=== PATIENT | male | born 1945 | race Caucasian/White ===

== ENCOUNTER 2022-08-29 14:22 | Inpatient (IN) | payer MEDICARE, OTHER ==
[~2022-08-29] VITALS: Ht 193 cm; Wt 120.7 kg
--- NOTE | 2022-08-29 14:35 | NUR ---
bib PA from snf for generalized weakness, unble to transfer self to chair sent by Pmd for further eval. PLACED IN BED, AAOX3, BREATHING EVEN AND UNLABORED SATURATING AT 96% WITH 2LIT O2 VIA NC.
[2022-08-29 15:19] LABS: BASOPHILS # (AUTO) 0.1 K/uL (0.0-0.2); BASOPHILS % (AUTO) 0.8 % (0.0-2.0); EOSINOPHILS % (AUTO) 4.1 % (0.0-6.0); HEMATOCRIT 40 % (39-51); HEMOGLOBIN 13.1 g/dL (13.5-17.5); LYMPHOCYTES # (AUTO) 5.8 K/uL (0.8-4.8); LYMPHOCYTES % (AUTO) 57.1 % (20.0-44.0); MEAN CORPUSCULAR HGB CONC 32 g/dl (31.0-36.0); MEAN CORPUSCULAR VOLUME 93 fL (80-96); MONOCYTES % (AUTO) 10.1 % (2.0-12.0); NEUTROPHILS # (AUTO) 2.9 K/uL (1.8-8.9); NEUTROPHILS % (AUTO) 27.9 % (43.0-81.0); PLATELET COUNT (AUTO) 488 K/uL (150-450); RED BLOOD CELL COUNT(AUTO) 4.34 MIL/uL (4.5-6.0); WHITE BLOOD COUNT (AUTO) 10.2 K/uL (4.3-11.0)
--- NOTE | 2022-08-29 15:22 | NUR ---
SWAB FOR COVID19 AND RAPID INFLUENZA SENT TO LAB
[2022-08-29 15:28] LABS: MAGNESIUM 2.3 mg/dL (1.8-2.4)
[2022-08-29 15:33] LABS: CALCIUM, SERUM 8.8 mg/dL (8.5-10.1); CARBON DIOXIDE 29 mmol/L (21-32); CHLORIDE 104 mmol/L (98-107); CREATININE 0.5 mg/dL (0.6-1.3); GLUCOSE 109 mg/dL (74-106); POTASSIUM 3.8 mmol/L (3.5-5.1); SODIUM SERUM 138 mmol/L (136-145); UREA NITROGEN, BLOOD 26 mg/dL (7-18)
[2022-08-29 15:49] LABS: ALANINE AMINOTRANSFERASE 20 U/L (12-78); ALBUMIN 2.7 g/dL (3.4-5.0); ALKALINE PHOSPHATASE 114 U/L (46-116); ASPARTATE AMINOTRANSFERASE 15 U/L (15-37); BILIRUBIN,DIRECT 0.1 mg/dL (0.0-0.2); BILIRUBIN,TOTAL 0.2 mg/dL (0.2-1.0); LIPASE 89 U/L (73-393); TOTAL PROTEIN, SERUM 6.8 g/dL (6.4-8.2)
--- NOTE | 2022-08-29 16:11 | NUR ---
MOVE SHEET SUBMITTED.
[2022-08-29] MEDS ORDERED: CEFTRIAXONE 1GM BAG (ER ONLY) 1 GM/50 ML PIGGYBACK IV ONE (17:00)
[2022-08-29] MEDS ORDERED: AZITHROMYCIN 500 MG in IV D5W 250 ML IV ONE (17:00)
--- NOTE | 2022-08-29 17:19 | NUR ---
ROOM 101
[2022-08-29 17:22] LABS: THYROID STIMULATING HORMONE 6.232 uIU/mL (0.358-3.74)
[2022-08-29] MEDS ORDERED: CEFTRIAXONE 1GM BAG (ER ONLY) 50 ML IV ONE (17:29)
--- NOTE | 2022-08-29 17:37 | NUR ---
[facility] CALLED YOUTH LEADER PAGED.
--- NOTE | 2022-08-29 20:15 | NUR ---
REPORT GIVEN TO MELI COOK FOR CONTINUATION OF CARE.
[2022-08-29] MEDS ORDERED: hydrALAZINE HCL IV 20 MG VIAL IV PRN (21:30)
[2022-08-29] MEDS ORDERED: MAG HYDROX/AL HYDROX/SIMETH 30 ML UDC PO PRN (21:30)
[2022-08-29] MEDS ORDERED: MAGNESIUM HYDROXIDE 30 ML UDC PO PRN (21:30)
[2022-08-29] MEDS ORDERED: ZOLPIDEM TARTRATE 5 MG TABLET PO PRN (21:30)
[2022-08-29] MEDS ORDERED: ONDANSETRON HCL/PF 4 MG/2 ML VIAL IVP PRN (21:30)
[2022-08-29] MEDS ORDERED: CEFEPIME 1 GM in IV D5W 50 ML IV SCH (21:30)
[2022-08-29] MEDS ORDERED: Z GUARD REMEDY 4 OZ OINT TP PRN (21:30)
[2022-08-29] MEDS ORDERED: DEXTROSE 50%-WATER 50 ML DISP.SYRIN IV PRN (21:30)
--- NOTE | 2022-08-29 21:30 | NUR ---
MS RN ADMITTING NOTE PATIENT WAS TRANSFERRED FROM ER TO [facility] AT 2115H; PATIENT IS A/O X 4, ABLE TO MAKE NEEDS KNOWN; STABLE ON 2LPM O2 VIA NASAL CANNULA, TOLERATING WELL AND NO S/S OF DISTRESS NOTED; PATIENT IS POSITIVE FOR COVID 19, HENCE DROPLET PRECAUTION IN PLACE; PATIENT ORIENTED TO STAFF AND ROOM; SKIN WAS ASSESSED AND NOTED SACRAL WOUND AND REDNESS AND BILATERAL FEET SWELLING AND DISCOLORATION; VITAL SIGNS TAKEN AND RECORDED; ADMINISTERED MEDICATIONS ORDERED; PATIENT'S NEEDS ATTENDED; SAFETY MEASURES IMPLEMENTED, BED IN LOW AND LOCKED POSITION, SIDE RAILS UP X 2, CALL LIGHT WITHIN REACH; WILL CONTINUE TO MONITOR THROUGHOUT SHIFT
[2022-08-29] MEDS ORDERED: CEFEPIME 1 GM in IV D5W 50 ML IV ONE (22:00)
[2022-08-29] MEDS ORDERED: CEFEPIME 1 GM VIAL ONE (22:29)
[2022-08-29] MEDS: ENOXAPARIN SODIUM 40 MG/0.4 ML DISP.SYRIN SQ SCH (22:30)
[2022-08-29] MEDS: BLOOD SUGAR DIAGNOSTIC 1 EACH STRIP IN SCH (23:12)
[2022-08-30] MEDS ORDERED: ARIP5TAB10 PO (02:37)
[2022-08-30] MEDS ORDERED: TAMS-12 PO (02:44)
[2022-08-30] MEDS ORDERED: FAMO20TA8 PO (02:44)
[2022-08-30] MEDS ORDERED: LUBI24CA5 PO (02:44)
[2022-08-30] MEDS ORDERED: FERR325T23 PO (02:44)
[2022-08-30] MEDS ORDERED: CHOL100040 PO (02:44)
[2022-08-30] MEDS ORDERED: ASCO500T10 PO (02:44)
[2022-08-30] MEDS ORDERED: DUTA0.5C PO (02:44)
[2022-08-30] MEDS ORDERED: MULT-754 PO (02:44)
[2022-08-30 06:03] LABS: BASOPHILS % (AUTO) 0.5 % (0.0-2.0); EOSINOPHILS % (AUTO) 3.3 % (0.0-6.0); HEMATOCRIT 41 % (39-51); HEMOGLOBIN 13.3 g/dL (13.5-17.5); LYMPHOCYTES # (AUTO) 3.6 K/uL (0.8-4.8); LYMPHOCYTES % (AUTO) 43.9 % (20.0-44.0); MEAN CORPUSCULAR HGB CONC 33 g/dl (31.0-36.0); MEAN CORPUSCULAR VOLUME 92 fL (80-96); MONOCYTES # (AUTO) 0.8 K/uL (0.1-1.30); MONOCYTES % (AUTO) 10.1 % (2.0-12.0); NEUTROPHILS # (AUTO) 3.4 K/uL (1.8-8.9); NEUTROPHILS % (AUTO) 42.2 % (43.0-81.0); PLATELET COUNT (AUTO) 470 K/uL (150-450); RED BLOOD CELL COUNT(AUTO) 4.43 MIL/uL (4.5-6.0); WHITE BLOOD COUNT (AUTO) 8.1 K/uL (4.3-11.0)
[2022-08-30 06:35] LABS: BILIRUBIN,URINE NEGATIVE (NEGATIVE); COLOR,URINE YELLOW (YELLOW); LEUKOCYTE ESTERASE ,URINE 2+ (NEGATIVE); NITRITE, URINE NEGATIVE (NEGATIVE); PH,URINE 8.5 (5.0-8.0); PROTEIN,URINE 2+ mg/dl (NEGATIVE); UGLUCOSE NEGATIVE (NEGATIVE); UROBILINOGEN,URINE 0.2 EU/dL (0.2)
[2022-08-30 06:39] LABS: T4 (THYROXINE) 9.2 ug/dL (4.7-13.3); THYROID STIMULATING HORMONE 3.966 uIU/mL (0.358-3.74)
[2022-08-30 06:45] LABS: CALCIUM, SERUM 8.9 mg/dL (8.5-10.1); CREATININE 0.6 mg/dL (0.6-1.3); POTASSIUM 3.9 mmol/L (3.5-5.1)
[2022-08-30 06:51] LABS: ALBUMIN 2.8 g/dL (3.4-5.0); BILIRUBIN,DIRECT 0.1 mg/dL (0.0-0.2); BILIRUBIN,TOTAL 0.2 mg/dL (0.2-1.0); MAGNESIUM 2.3 mg/dL (1.8-2.4); PHOSPHORUS 3.6 mg/dL (2.5-4.9)
[2022-08-30 06:55] LABS: BACTERIA,URINE Few /HPF (None Seen); SQUAMOUS EPITHELIAL CELL,UR Moderate /HPF (None Seen); URINE AMORPHOUS PHOSPHATES Moderate /HPF (None Seen)
--- NOTE | 2022-08-30 07:10 | NUR ---
MS RN open NOTE PATIENT IS A/O X 4, ABLE TO MAKE NEEDS KNOWN; STABLE ON 2LPM O2 VIA NASAL CANNULA, TOLERATING WELL AND NO S/S OF DISTRESS NOTED; PATIENT IS POSITIVE FOR COVID 19, HENCE DROPLET PRECAUTION IN PLACE; WITH IV ACCESS ON LEFT HAND G#20 SALINE LOCK, INTACT AND PATENT, FLUSHING WELL; SKIN WAS ASSESSED AND NOTED SACRAL WOUND AND REDNESS AND BILATERAL FEET SWELLING AND DISCOLORATION; SAFETY MEASURES IMPLEMENTED, BED IN LOW AND LOCKED POSITION, SIDE RAILS UP X 2, CALL LIGHT WITHIN REACH; NO COMPLAINTS OF PAIN AND DISCOMFORT AT THIS TIME; WILL CONTINUE TO MONITOR
--- NOTE | 2022-08-30 07:18 | NUR ---
MS RN CLOSING NOTE PATIENT IS A/O X 4, ABLE TO MAKE NEEDS KNOWN; STABLE ON 2LPM O2 VIA NASAL CANNULA, TOLERATING WELL AND NO S/S OF DISTRESS NOTED; PATIENT IS POSITIVE FOR COVID 19, HENCE DROPLET PRECAUTION IN PLACE; PATIENT ORIENTED TO STAFF AND ROOM; WITH IV ACCESS ON LEFT HAND G#20 SALINE LOCK, INTACT AND PATENT, FLUSHING WELL; SKIN WAS ASSESSED AND NOTED SACRAL WOUND AND REDNESS AND BILATERAL FEET SWELLING AND DISCOLORATION; ADMINISTERED MEDICATIONS ORDERED; PATIENT'S NEEDS ATTENDED; SAFETY MEASURES IMPLEMENTED, BED IN LOW AND LOCKED POSITION, SIDE RAILS UP X 2, CALL LIGHT WITHIN REACH; NO COMPLAINTS OF PAIN AND DISCOMFORT AT THIS TIME; WILL ENDORSE TO AM NURSE FOR NEO.
[2022-08-30] MEDS: LEVOTHYROXINE SODIUM 50 MCG TABLET PO SCH (07:20)
[2022-08-30] MEDS: CEFEPIME 2 GM in IV D5W 100 ML IV SCH ×3 (07:21→21:00)
[2022-08-30] MEDS: BLOOD SUGAR DIAGNOSTIC 1 EACH STRIP IN SCH ×4 (07:32→22:09)
[2022-08-30] MEDS ORDERED: IPRATROPIUM NEB FS 0.5 MG/2.5 ML AMPUL.NEB NEB SCH (07:35)
[2022-08-30] MEDS ORDERED: ALBUTEROL FS 2.5 MG/3 ML VIAL.NEB NEB SCH (07:35)
[2022-08-30] MEDS: PANTOPRAZOLE 40 MG VIAL IV SCH (08:05)
[2022-08-30] MEDS: DEXAMETHASONE SOD PHOSPHATE 10 MG/ML VIAL IV SCH (08:05)
[2022-08-30] MEDS ORDERED: SENN-18 PO (09:49)
[2022-08-30] MEDS ORDERED: BISA10SU11 RC (09:49)
[2022-08-30] MEDS ORDERED: FURO-145 PO (09:49)
[2022-08-30] MEDS ORDERED: ACET-2605 PO (09:49)
[2022-08-30] MEDS ORDERED: AMIN30LI2 PO (09:49)
[2022-08-30] MEDS ORDERED: LEVO50TA8 PO (09:49)
[2022-08-30] MEDS ORDERED: POLY17PO4 PO (09:49)
[2022-08-30] MEDS ORDERED: ALEN70TA80 PO (09:49)
--- NOTE | 2022-08-30 09:50 | NUR ---
WOUND CARE CONSULT: REVIEWED CHART, NURSING DOCUMENTATION AND PHOTOS WHICH INDICATE SACRAL DEEP TISSUE INJURY WITH SCARRING AND DISCOLORATION TO LOWER EXTREMITIES, PRESENT ON ADMISSION. RECOMMENDATIONS MADE FOR SKIN PROTECTION AND DISCUSSED WITH NURSING STAFF. MD IN AGREEMENT WITH PLAN OF CARE.
[2022-08-30] MEDS: IPRATROPIUM/ALBUTEROL INHALER IH SCH ×2 (14:22→19:47)
--- NOTE | 2022-08-30 18:32 | NUR ---
MS RN CLOSING NOTE PATIENT IS A/O X 3, ABLE TO MAKE NEEDS KNOWN; STABLE ON 2LPM O2 VIA NASAL CANNULA, TOLERATING WELL AND NO S/S OF DISTRESS NOTED; PATIENT IS POSITIVE FOR COVID 19, DROPLET PRECAUTION IN PLACE; WITH IV ACCESS ON LEFT HAND G#20 SALINE LOCK, INTACT AND PATENT, FLUSHING WELL; HAS SACRAL DTI AND REDNESS AND BILATERAL FEET SWELLING AND DISCOLORATION; ALL MEDICATIONS ADMINISTERED ORDERED; PATIENT'S NEEDS MET; BED IN LOW POSITION AND LOCKED , SIDE RAILS UP X 2, CALL LIGHT WITHIN REACH; NO COMPLAINTS OF PAIN AND DISCOMFORT AT THIS TIME; WILL ENDORSE TO PM NURSE FOR NEO.
--- NOTE | 2022-08-30 19:30 | NUR ---
MS RN OPENING NOTE RECEIVED PT IN BED, AWAKE, A/O X 4, ABLE TO VERBALIZE NEEDS. CURRENTLY ON 2L NC, TOLERATING WELL, SATING @ 97%. NO S/SX OF ACUTE RESPI DISTRESS NOTED AT THIS TIME. NO SOB, BREATHING IS EVEN AND UNLABORED. IV ACCESS ON L HAND, # 20g, SL. PT ON DROPLET PRECS. ALL SAFETY MEASURES IN PLACE: BED LOCKED IN LOW POSITION, BED ALARM ON. SR UP X 2, CALL LIGHT WITHIN REACH. WILL CONTINUE TO MONITOR PT.
[2022-08-30 20:00] VITALS: BP 135/72
[2022-08-30] MEDS: ENOXAPARIN SODIUM 40 MG/0.4 ML DISP.SYRIN SQ SCH (21:05)
[2022-08-30] MEDS: INSULIN REGULAR, HUMAN 100 UNIT/ML 3 ML VIAL SQ PRN (22:11)
[2022-08-31 04:00] VITALS: BP 133/69
[2022-08-31] MEDS: CEFEPIME 2 GM in IV D5W 100 ML IV SCH ×3 (04:16→21:17)
[2022-08-31] MEDS: LEVOTHYROXINE SODIUM 50 MCG TABLET PO SCH (06:02)
--- NOTE | 2022-08-31 06:35 | NUR ---
MS RN CLOSING NOTE PT REMAINED STABLE T/O THE NIGHT. ALL DUE MEDS GIVEN. NEEDS MET. PM CARE DONE. TURNED AND REPOSITIONED. WILL ENDORSE TO AM SHIFT NURSE FOR NEO.
--- NOTE | 2022-08-31 07:00 | NUR ---
RN OPENING NOTE RECEIVED PT IN BED, AWAKE, A/O X 4, ABLE TO VERBALIZE NEEDS. CURRENTLY ON 2L NC, TOLERATING WELL. NO S/SX OF ACUTE RESPI DISTRESS NOTED AT THIS TIME. NO SOB, BREATHING IS EVEN AND UNLABORED. IV ACCESS ON L HAND, # 20g, SL. PT ON DROPLET PRECS. ALL SAFETY MEASURES IN PLACE: BED LOCKED IN LOW POSITION, BED ALARM ON. SR UP X 2, CALL LIGHT WITHIN REACH. WILL CONTINUE TO MONITOR PT.
[2022-08-31] MEDS: IPRATROPIUM/ALBUTEROL INHALER IH SCH ×3 (07:35→19:51)
[2022-08-31] MEDS: BLOOD SUGAR DIAGNOSTIC 1 EACH STRIP IN SCH ×4 (07:51→22:07)
[2022-08-31] MEDS: DEXAMETHASONE SOD PHOSPHATE 10 MG/ML VIAL IV SCH (08:14)
[2022-08-31] MEDS: PANTOPRAZOLE 40 MG VIAL IV SCH (08:14)
[2022-08-31 08:15] LABS: BASOPHILS % (AUTO) 0.2 % (0.0-2.0); EOSINOPHILS % (AUTO) 0.3 % (0.0-6.0); HEMATOCRIT 38 % (39-51); HEMOGLOBIN 12.6 g/dL (13.5-17.5); LYMPHOCYTES # (AUTO) 4.3 K/uL (0.8-4.8); MEAN CORPUSCULAR HGB CONC 33 g/dl (31.0-36.0); MEAN CORPUSCULAR VOLUME 92 fL (80-96); MONOCYTES # (AUTO) 0.9 K/uL (0.1-1.30); MONOCYTES % (AUTO) 10.6 % (2.0-12.0); NEUTROPHILS # (AUTO) 3.2 K/uL (1.8-8.9); NEUTROPHILS % (AUTO) 37.9 % (43.0-81.0); PLATELET COUNT (AUTO) 481 K/uL (150-450); RED BLOOD CELL COUNT(AUTO) 4.13 MIL/uL (4.5-6.0); WHITE BLOOD COUNT (AUTO) 8.4 K/uL (4.3-11.0)
[2022-08-31 08:36] LABS: CALCIUM, SERUM 8.9 mg/dL (8.5-10.1); CREATININE 0.6 mg/dL (0.6-1.3); MAGNESIUM 2.2 mg/dL (1.8-2.4); POTASSIUM 3.6 mmol/L (3.5-5.1)
[2022-08-31 12:01] VITALS: BP 136/66
[2022-08-31] MEDS: INSULIN REGULAR, HUMAN 100 UNIT/ML 3 ML VIAL SQ PRN ×3 (12:42→22:07)
--- NOTE | 2022-08-31 19:07 | NUR ---
RN CLOSING NOTE PT IN BED, AWAKE, A/O X 4, ABLE TO VERBALIZE NEEDS. CURRENTLY ON 2L NC, TOLERATING WELL, SATING @ 98%. NO S/SX OF ACUTE RESPI DISTRESS NOTED AT THIS TIME. NO SOB, BREATHING IS EVEN AND UNLABORED. IV ACCESS ON L HAND, # 20g, SL. PT ON DROPLET PRECS. ALL SAFETY MEASURES IN PLACE: BED LOCKED IN LOW POSITION, BED ALARM ON. SR UP X 2, CALL LIGHT WITHIN REACH. INDORSED TO THE CHARCOAL BURNER BEEHIVE KILN NURSE FOR NEO..
--- NOTE | 2022-08-31 19:33 | NUR ---
MS RN OPENING NOTES: RECEIVED PATIENT AWAKE IN BED, BED IN LOW POSITION CALL LIGHTS WITHIN REACH, NO COMPLAIN OF PAIN AND DISCOMFORT AT THIS TIME, ON O2 INHALATION AT2LPM SATURATING WELL, NO SOB WAS OBSERVED, PATIENT IS A/O X1, CONFUSED, ON BED REST,IV LINE AT LEFT HAND #20SL, PATIENT KEPT CLEAN AND DRY ALL NEEDS MET WILL CONTINUE TO MONITOR.
[2022-08-31 20:00] VITALS: BP 115/57
[2022-08-31] MEDS: ENOXAPARIN SODIUM 40 MG/0.4 ML DISP.SYRIN SQ SCH (21:18)
--- NOTE | 2022-08-31 22:02 | NUR ---
RN NOTES: BLOOD SUGAR-139/ 2UNITS REGULAR INSULIN GIVEN PER SLIDING SCALE.
[2022-09-01] VITALS: BP 105/58
[2022-09-01 04:00] VITALS: BP 144/63
[2022-09-01] MEDS: CEFEPIME 2 GM in IV D5W 100 ML IV SCH ×3 (05:00→21:12)
--- NOTE | 2022-09-01 06:19 | NUR ---
MS RN CLOSING NOTES: PATIENT SLEEP IN BED, COMFORTABLY, AROUSABLE TO VERBAL STIMULI, BED IN LOW POSITION, CALL LIGHTS WITHIN REACH, NO COMPLAIN OF PAIN AND DISCOMFORT AT THIS TIME,ON O2 INHALATION AT 2LPM SATURATING WELL, NO SOB WAS OBSERVED IV LINE AT LEFT HAND #20SL, PATIENT KEPT CLEAN AND DRY ALL NEEDS MET ENDORSE TO INCOMING SHIFT,
[2022-09-01] MEDS: LEVOTHYROXINE SODIUM 50 MCG TABLET PO SCH (06:32)
[2022-09-01 07:06] LABS: BASOPHILS % (AUTO) 0.4 % (0.0-2.0); EOSINOPHILS % (AUTO) 0.1 % (0.0-6.0); HEMATOCRIT 39 % (39-51); HEMOGLOBIN 12.3 g/dL (13.5-17.5); LYMPHOCYTES # (AUTO) 3.8 K/uL (0.8-4.8); LYMPHOCYTES % (AUTO) 45.6 % (20.0-44.0); MEAN CORPUSCULAR HGB CONC 32 g/dl (31.0-36.0); MEAN CORPUSCULAR VOLUME 94 fL (80-96); MONOCYTES # (AUTO) 0.8 K/uL (0.1-1.30); MONOCYTES % (AUTO) 10.1 % (2.0-12.0); NEUTROPHILS # (AUTO) 3.6 K/uL (1.8-8.9); NEUTROPHILS % (AUTO) 43.8 % (43.0-81.0); PLATELET COUNT (AUTO) 471 K/uL (150-450); RED BLOOD CELL COUNT(AUTO) 4.09 MIL/uL (4.5-6.0); WHITE BLOOD COUNT (AUTO) 8.2 K/uL (4.3-11.0)
--- NOTE | 2022-09-01 07:20 | NUR ---
REGIONAL SALES ASSOCIATE OPENING NOTES Received pt awake in bed AOx2. No complaints of pain or discomfort at this time. On isolation for COVID 19. Pt is on 2L NC and tolerating it well. IV access on left hand 20G patent and intact. HOB elevated to pts comfort. Siderails up at all times x2. Myron light within reach. Will continue to monitor.
[2022-09-01 07:21] LABS: CALCIUM, SERUM 8.6 mg/dL (8.5-10.1); CARBON DIOXIDE 26 mmol/L (21-32); CHLORIDE 103 mmol/L (98-107); CREATININE 0.5 mg/dL (0.6-1.3); GLUCOSE 127 mg/dL (74-106); MAGNESIUM 2.2 mg/dL (1.8-2.4); PHOSPHORUS 2.5 mg/dL (2.5-4.9); POTASSIUM 3.2 mmol/L (3.5-5.1); SODIUM SERUM 136 mmol/L (136-145); UREA NITROGEN, BLOOD 28 mg/dL (7-18)
[2022-09-01] MEDS: BLOOD SUGAR DIAGNOSTIC 1 EACH STRIP IN SCH ×4 (07:47→21:52)
[2022-09-01 08:00] VITALS: BP 133/62
[2022-09-01] MEDS: PANTOPRAZOLE 40 MG TABLET.DR PO SCH (08:20)
[2022-09-01] MEDS: DEXAMETHASONE SOD PHOSPHATE 10 MG/ML VIAL IV SCH (08:22)
[2022-09-01] MEDS: POTASSIUM CHLORIDE 20 MEQ TAB.PRT.SR PO SCH ×2 (09:07→10:05)
[2022-09-01] MEDS: ACETAMINOPHEN 325 MG TABLET PO PRN (10:09)
--- NOTE | 2022-09-01 11:23 | NUR ---
ICT BUSINESS DEVELOPMENT MANAGER NOTES New order from Dr. Mcdonnell to removed NC from pt and recheck o2 in and hour to see how he's tolerating RA. CN made aware.
--- NOTE | 2022-09-01 12:30 | NUR ---
RESEARCH AND DEVELOPMENT CHEMIST NOTES Pt O2 saturation is at 96%. CN made aware. Will continue pt on RA.
[2022-09-01] MEDS: IPRATROPIUM/ALBUTEROL INHALER IH SCH ×2 (15:36→23:53)
[2022-09-01 16:00] VITALS: BP 117/59
--- NOTE | 2022-09-01 18:25 | NUR ---
CLERK CARRIER CLOSING NOTES All due meds and tx given as ordered. Pt tolerated everything well. All needs attended to. Pt is on RA and tolerating it well with 02 saturation at 97%. IV access on left wrist patent and intact. Call light within reach. Will endorse to oncoming nurse.
--- NOTE | 2022-09-01 19:30 | NUR ---
MS RN OPENING NOTE RECEIVED PATIENT IN BED; AWAKE, ALERT AND ORIENTED X 1-2. ON ROOM AIR; TOLERATING WELL SATURATING @ 97%. AFEBRILE. NOT IN ANY FORM OF RESPIRATORY OR CARDIAC DISTRESS. NO C/O ANY PAIN OR DISCOMFORT. ABLE TO VERBALIZE NEEDS. WITH IV ACCESS ON LEFT HAND 20g: PATENT, INTACT AND SALINE LOCKED. SAFETY PRECAUTIONS IMPLEMENTED: CALL LIGHT AND TABLE WITHIN REACH, SIDE RAILS UP X 2, BED IN LOWEST LOCKED POSITION. WILL CONTINUE TO MONITOR THROUGHOUT SHIFT.
[2022-09-01 20:00] VITALS: BP 124/65
[2022-09-01] MEDS: ENOXAPARIN SODIUM 40 MG/0.4 ML DISP.SYRIN SQ SCH (21:30)
--- NOTE | 2022-09-01 21:30 | NUR ---
RN NOTE HGB 12.3/HCT 39. NO S/S OF BLEEDING. LOVENOX 40 MG 0.4 ML GIVEN SQ ORDERED. WILL CONTINUE TO MONITOR.
[2022-09-01] MEDS: INSULIN REGULAR, HUMAN 100 UNIT/ML 3 ML VIAL SQ PRN (21:53)
[2022-09-02 04:00] VITALS: BP 155/72
[2022-09-02] MEDS: CEFEPIME 2 GM in IV D5W 100 ML IV SCH ×2 (05:51→12:06)
[2022-09-02 05:54] LABS: BASOPHILS % (AUTO) 0.6 % (0.0-2.0); EOSINOPHILS % (AUTO) 0.4 % (0.0-6.0); HEMATOCRIT 41 % (39-51); HEMOGLOBIN 13.3 g/dL (13.5-17.5); LYMPHOCYTES # (AUTO) 4.1 K/uL (0.8-4.8); LYMPHOCYTES % (AUTO) 48.2 % (20.0-44.0); MEAN CORPUSCULAR HGB CONC 33 g/dl (31.0-36.0); MEAN CORPUSCULAR VOLUME 92 fL (80-96); MONOCYTES # (AUTO) 0.9 K/uL (0.1-1.30); MONOCYTES % (AUTO) 10.2 % (2.0-12.0); NEUTROPHILS # (AUTO) 3.4 K/uL (1.8-8.9); NEUTROPHILS % (AUTO) 40.6 % (43.0-81.0); PLATELET COUNT (AUTO) 492 K/uL (150-450); RED BLOOD CELL COUNT(AUTO) 4.41 MIL/uL (4.5-6.0); WHITE BLOOD COUNT (AUTO) 8.5 K/uL (4.3-11.0)
[2022-09-02] MEDS: ACETAMINOPHEN 325 MG TABLET PO PRN (06:03)
[2022-09-02] MEDS: LEVOTHYROXINE SODIUM 50 MCG TABLET PO SCH (06:03)
[2022-09-02 06:08] LABS: CALCIUM, SERUM 8.9 mg/dL (8.5-10.1); CREATININE 0.6 mg/dL (0.6-1.3); MAGNESIUM 2.3 mg/dL (1.8-2.4); PHOSPHORUS 2.4 mg/dL (2.5-4.9); POTASSIUM 3.7 mmol/L (3.5-5.1)
--- NOTE | 2022-09-02 06:42 | NUR ---
MS RN CLOSING NOTE PATIENT IN BED; AWAKE, A/O X 1-2. STABLE ON ROOM AIR SATURATING @ 98%. IN NO ACUTE DISTRESS. DENIES ANY PAIN OR DISCOMFORT. ALL NEEDS ATTENDED. WITH IV ACCESS ON LEFT HAND 20g: PATENT, INTACT AND SALINE LOCKED. SAFETY PRECAUTIONS IN PLACE: CALL LIGHT AND TABLE WITHIN EASY REACH, SIDE RAILS UP X 2, BED IN LOWEST LOCKED POSITION. ENDORSED TO MORNING SHIFT FOR NEO.
--- NOTE | 2022-09-02 07:10 | NUR ---
FIELD CROP I FARMWORKER OPENING NOTES Received pt awake in bed AOx2. No complaints of pain or discomfort at this time. On isolation for COVID 19. Pt is on RA and tolerating it well. IV access on left hand 20G patent and intact. HOB elevated to pts comfort. Siderails up at all times x2. Myron light within reach. Will continue to monitor.
[2022-09-02] MEDS: IPRATROPIUM/ALBUTEROL INHALER IH SCH ×2 (07:35→13:03)
[2022-09-02] MEDS: BLOOD SUGAR DIAGNOSTIC 1 EACH STRIP IN SCH ×2 (07:54→11:30)
[2022-09-02 08:00] VITALS: BP 114/60
[2022-09-02] MEDS: DEXAMETHASONE SOD PHOSPHATE 10 MG/ML VIAL IV SCH (09:02)
[2022-09-02] MEDS: PANTOPRAZOLE 40 MG TABLET.DR PO SCH (09:02)
[2022-09-02] MEDS ORDERED: NEUTRA PHOS 1 POWD.PACKET PO ONE (10:00)
[2022-09-02] MEDS: INSULIN REGULAR, HUMAN 100 UNIT/ML 3 ML VIAL SQ PRN (12:03)
[2022-09-02] MEDS ORDERED: FERROUS SULFATE (325 MG) 325 MG/TAB TABLET PO SCH (12:30)
[2022-09-02] MEDS ORDERED: ACETAMINOPHEN ES 500 MG TABLET PO PRN (12:30)
[2022-09-02] MEDS ORDERED: FUROSEMIDE 20 MG TABLET PO SCH (12:30)
[2022-09-02] MEDS ORDERED: ASCORBIC ACID 500 MG TABLET PO SCH (12:30)
[2022-09-02] MEDS ORDERED: BISACODYL SUPP (10 MG) 10 MG/SUPP.RECT SUPP.RECT RC PRN (12:30)
--- NOTE | 2022-09-02 13:50 | NUR ---
LABEL DRIER NOTES Pt has a discharge order back to [facility]. Report given to JOYCE Novak. tool room supervisor time is 1400.
--- NOTE | 2022-09-02 15:09 | NUR ---
MONITOR WORKER NOTES Pt picked up by ambulance company [facility]. Gave all paperwork and endorsement to EMT. Removed IV access. Pts. belongings taken with pt. Transferred from bed to [facility] safely.
[2022-09-02] MEDS ORDERED: PROSOURCE / PROSTAT (PYXIS) 30 ML UDC PO SCH (17:00)
[2022-09-02] MEDS ORDERED: Medication Not On Formulary EA (Lubiprostone (Amitiza) 24 MCG) PO SCH (17:00)
[2022-09-02] MEDS ORDERED: SENNOSIDES 8.6 MG TABLET PO SCH (17:00)
[2022-09-02] MEDS ORDERED: POLYETHYLENE GLYCOL 3350 17 GM POWD.PACK PO SCH (17:00)
[2022-09-02] MEDS ORDERED: TAMSULOSIN 0.4 MG CAP.SR.24H PO SCH (22:00)
[2022-09-03] MEDS ORDERED: LEVOTHYROXINE SODIUM 50 MCG TABLET PO SCH (07:30)
[2022-09-03] MEDS ORDERED: MULTIVITAMINS,THERAGRAN 1 UDTAB TABLET PO SCH (09:00)
[2022-09-03] MEDS ORDERED: PROSOURCE / PROSTAT (PYXIS) 30 ML UDC PO SCH (09:00)
[2022-09-03] MEDS ORDERED: FAMOTIDINE (20 MG) 20 MG TABLET PO SCH (09:00)
[2022-09-03] MEDS ORDERED: DUTASTERIDE (0.5 MG) 0.5 MG CAPSULE PO SCH (09:00)
[2022-09-03] MEDS ORDERED: ARIPIPRAZOLE 5 MG TABLET PO SCH (09:00)
[2022-09-03] MEDS ORDERED: CHOLECALCIFEROL 1,000 UNIT TABLET (VIT D3) PO SCH (09:00)
[2022-09-08] MEDS ORDERED: ALENDRONATE 70 MG TABLET PO SCH (12:30)
== END 2022-09-02 15:09 | DRG 177 ==
LOC: ER 14:39 → MEDSG1 17:29 → UNDODISIN 09-02 15:44
PROVIDERS: ADMIT Nurse Practitioner Acute Care; ATTEND Student in an Organized Health Care Education/Training Program
DX: U07.1 COVID-19 (principal); J12.82 Pneumonia due to coronavirus disease 2019; J15.9 Unspecified bacterial pneumonia; J90 Pleural effusion, not elsewhere classified; J98.11 Atelectasis; N39.0 Urinary tract infection, site not specified; E86.0 Dehydration; E03.9 Hypothyroidism, unspecified; I11.9 Hypertensive heart disease without heart failure; N40.0 Benign prostatic hyperplasia without lower urinary tract symptoms; M81.0 Age-related osteoporosis without current pathological fracture; Z87.440 Personal history of urinary (tract) infections; K21.00 Gastro-esophageal reflux disease with esophagitis, without bleeding; Y95 Nosocomial condition; G47.33 Obstructive sleep apnea (adult) (pediatric); R79.89 Other specified abnormal findings of blood chemistry; E66.01 Morbid (severe) obesity due to excess calories; Z68.33 Body mass index [BMI] 33.0-33.9, adult; Z79.83 Long term (current) use of bisphosphonates; Z79.899 Other long term (current) drug therapy; F20.9 Schizophrenia, unspecified
CPT/HCPCS: 36415; 71045-TC; 80048-TC; 80061-TC; 80076-TC; 81001; 82728-TC; 82962-TC; 83540-TC; 83605-TC; 83690-TC; 83735-TC; 83880; 84100-TC; 84436-TC; 84443-TC; 84480; 84484-TC; 85025-TC; 85378-TC; 86140-TC; 87081-TC; 87086-TC; 97110-TC; A4223; C9113; C9803; G0378; J0456; J0692; J0696; J1100; J1650; J1815; J7060

== ENCOUNTER 2023-05-06 18:19 | Inpatient (IN) | payer MEDICARE, OTHER ==
[~2023-05-06] VITALS: Ht 193 cm; Wt 145.6 kg
[~2023-05-06 18:19] MED LIST: ACET-2605 PO; ALEN70TA80 PO; AMIN30LI2 PO; ARIP5TAB10 PO; ASCO500T10 PO; BISA10SU11 RC; CHOL100040 PO; DUTA0.5C PO; FAMO20TA8 PO; FERR325T23 PO; FURO-145 PO; LEVO50TA8 PO; LUBI24CA5 PO; MULT-754 PO; POLY17PO4 PO; SENN-18 PO; TAMS-12 PO
[2023-05-06] MEDS ORDERED: HYDR-4209 PO (19:01)
[2023-05-06] MEDS ORDERED: GABA300C PO (19:01)
[2023-05-06] MEDS ORDERED: IPRA4AER IH (19:01)
[2023-05-06] MEDS ORDERED: LIQUID PROTEIN PO (19:01)
[2023-05-06] MEDS ORDERED: ARIP5TAB10 PO (19:01)
[2023-05-06] MEDS ORDERED: CHOL200059 PO (19:01)
[2023-05-06] MEDS ORDERED: HYDR-4303 PO (19:01)
[2023-05-06] MEDS ORDERED: INSU100V3 SQ (19:01)
[2023-05-06] MEDS ORDERED: HYDR-4075 PO (19:01)
[2023-05-06] MEDS ORDERED: GLUC1KIT SQ (19:01)
[2023-05-06] MEDS ORDERED: PANT40TA2 PO (19:01)
[2023-05-06] MEDS ORDERED: ACET-868 PO (19:01)
[2023-05-06 19:50] LABS: BASOPHILS # (AUTO) 0.1 K/uL (0.0-0.2); BASOPHILS % (AUTO) 1.2 % (0.0-2.0); EOSINOPHILS # (AUTO) 0.6 K/uL (0.0-0.7); EOSINOPHILS % (AUTO) 6.8 % (0.0-6.0); HEMATOCRIT 41 % (39-51); HEMOGLOBIN 13.5 g/dL (13.5-17.5); LYMPHOCYTES # (AUTO) 4.1 K/uL (0.8-4.8); LYMPHOCYTES % (AUTO) 44.3 % (20.0-44.0); MEAN CORPUSCULAR HEMOGLOBIN 31 PG (26.0-33.0); MEAN CORPUSCULAR HGB CONC 33 g/dl (31.0-36.0); MEAN CORPUSCULAR VOLUME 94 fL (80-96); MONOCYTES % (AUTO) 11.3 % (2.0-12.0); NEUTROPHILS # (AUTO) 3.4 K/uL (1.8-8.9); NEUTROPHILS % (AUTO) 36.4 % (43.0-81.0); PLATELET COUNT (AUTO) 457 K/uL (150-450); RED BLOOD CELL COUNT(AUTO) 4.35 MIL/uL (4.5-6.0); RED CELL DISTRIBUTION WIDTH 14.7 % (11.5-15.0); WHITE BLOOD COUNT (AUTO) 9.3 K/uL (4.3-11.0)
[2023-05-06 20:06] LABS: ALANINE AMINOTRANSFERASE 23 U/L (12-78); ALKALINE PHOSPHATASE 149 U/L (46-116); ASPARTATE AMINOTRANSFERASE 14 U/L (15-37); BILIRUBIN,DIRECT 0.1 mg/dL (0.0-0.2); BILIRUBIN,TOTAL 0.3 mg/dL (0.2-1.0); CALCIUM, SERUM 9.3 mg/dL (8.5-10.1); CARBON DIOXIDE 30 mmol/L (21-32); CHLORIDE 100 mmol/L (98-107); CREATININE 0.7 mg/dL (0.6-1.3); GLUCOSE 91 mg/dL (74-106); SODIUM SERUM 134 mmol/L (136-145); TOTAL PROTEIN, SERUM 7.8 g/dL (6.4-8.2); UREA NITROGEN, BLOOD 22 mg/dL (7-18)
[2023-05-06 20:08] LABS: INR 0.96 (0.91-1.10); LACTIC ACID 0.8 mmol/L (0.4-2.0); PARTIAL THROMBOPLASTIN TIME 32.9 SEC (24.3-34.3); PROTHROMBIN TIME 10.2 SECS (9.2-11.1)
[2023-05-06] MEDS ORDERED: MAGNESIUM HYDROXIDE 30 ML UDC PO PRN (21:30)
[2023-05-06] MEDS ORDERED: Z GUARD REMEDY 4 OZ OINT TP PRN (21:30)
[2023-05-06] MEDS ORDERED: FUROSEMIDE 20 MG/2 ML VIAL IV ONE (21:30)
[2023-05-06] MEDS ORDERED: Medication Not On Formulary EA (Ipratropium/Albuterol Sulfate (Combivent Respimat 20-100 IH PRN (21:30)
[2023-05-06] MEDS ORDERED: ONDANSETRON HCL/PF 4 MG/2 ML VIAL IVP PRN (21:30)
[2023-05-06] MEDS ORDERED: SENNOSIDES 8.6 MG TABLET PO PRN (21:30)
[2023-05-06] MEDS ORDERED: HYDROCODONE/APAP 10/325MG TABLET PO PRN (21:30)
[2023-05-06] MEDS ORDERED: ZOLPIDEM TARTRATE 5 MG TABLET PO PRN (21:30)
[2023-05-06] MEDS ORDERED: ACETAMINOPHEN 325 MG TABLET PO PRN ×2 (21:30)
[2023-05-06] MEDS ORDERED: DEXTROSE 50%-WATER 50 ML DISP.SYRIN IV PRN (21:30)
[2023-05-06] MEDS ORDERED: MAG HYDROX/AL HYDROX/SIMETH 30 ML UDC PO PRN (21:30)
[2023-05-06 22:20] VITALS: BP 128/63; TEMP 98.1; O2SAT 100
[2023-05-06] MEDS ORDERED: ALBUTEROL FS 2.5 MG/0.5 ML VIAL.NEB NEB PRN (22:30)
[2023-05-06] MEDS ORDERED: IPRATROPIUM NEB FS 0.5 MG/2.5 ML AMPUL.NEB IH PRN (22:30)
[2023-05-06 22:46] LABS: ALBUMIN 3.3 g/dL (3.4-5.0)
[2023-05-06 22:50] LABS: APPEARANCE,URINE CLOUDY (CLEAR); BILIRUBIN,URINE NEGATIVE (NEGATIVE); BLOOD, URINE TRACE-INTA Ery/uL (NEGATIVE); COLOR,URINE YELLOW (YELLOW); KETONES,URINE NEGATIVE (NEGATIVE); LEUKOCYTE ESTERASE ,URINE 3+ (NEGATIVE); NITRITE, URINE POSITIVE (NEGATIVE); PH,URINE 6.5 (5.0-8.0); PROTEIN,URINE NEGATIVE (NEGATIVE); UGLUCOSE NEGATIVE (NEGATIVE); UROBILINOGEN,URINE 0.2 EU/dL (0.2)
[2023-05-06 23:04] LABS: ADD URINE CULTURE YES; BACTERIA,URINE Moderate /HPF (None Seen); SQUAMOUS EPITHELIAL CELL,UR Rare /HPF (None Seen)
[2023-05-06] MEDS: BLOOD SUGAR DIAGNOSTIC 1 EACH STRIP IN SCH (23:16)
[2023-05-06] MEDS: INSULIN REGULAR, HUMAN 100 UNIT/ML 3 ML VIAL SQ PRN (23:16)
[2023-05-07] VITALS: BP 141/63; TEMP 97.9; O2SAT 97
[2023-05-07 00:13] VITALS: BP 128/63; TEMP 98.1; O2SAT 100
[2023-05-07] MEDS ORDERED: CEFTRIAXONE 1GM BAG (ER ONLY) 50 ML IV ONE (01:31)
[2023-05-07] MEDS: CEFTRIAXONE 1 G in IV D5W 50 ML IV SCH (02:23)
[2023-05-07 04:00] VITALS: BP 113/54; TEMP 97.7; O2SAT 95
[2023-05-07 05:52] LABS: BASOPHILS # (AUTO) 0.1 K/uL (0.0-0.2); BASOPHILS % (AUTO) 0.7 % (0.0-2.0); EOSINOPHILS # (AUTO) 0.5 K/uL (0.0-0.7); EOSINOPHILS % (AUTO) 6.8 % (0.0-6.0); HEMATOCRIT 37 % (39-51); HEMOGLOBIN 12.2 g/dL (13.5-17.5); LYMPHOCYTES # (AUTO) 3.3 K/uL (0.8-4.8); LYMPHOCYTES % (AUTO) 41.6 % (20.0-44.0); MEAN CORPUSCULAR HEMOGLOBIN 31 PG (26.0-33.0); MEAN CORPUSCULAR HGB CONC 33 g/dl (31.0-36.0); MEAN CORPUSCULAR VOLUME 93 fL (80-96); MONOCYTES # (AUTO) 1.2 K/uL (0.1-1.30); NEUTROPHILS # (AUTO) 2.8 K/uL (1.8-8.9); NEUTROPHILS % (AUTO) 35.9 % (43.0-81.0); PLATELET COUNT (AUTO) 447 K/uL (150-450); RED BLOOD CELL COUNT(AUTO) 3.99 MIL/uL (4.5-6.0); RED CELL DISTRIBUTION WIDTH 14.3 % (11.5-15.0); WHITE BLOOD COUNT (AUTO) 7.8 K/uL (4.3-11.0)
[2023-05-07 06:20] LABS: CALCIUM, SERUM 8.7 mg/dL (8.5-10.1); CREATININE 0.7 mg/dL (0.6-1.3); MAGNESIUM 2.2 mg/dL (1.8-2.4); PHOSPHORUS 3.6 mg/dL (2.5-4.9); POTASSIUM 3.7 mmol/L (3.5-5.1)
[2023-05-07 06:27] LABS: THYROID STIMULATING HORMONE 5.349 uIU/mL (0.358-3.74)
[2023-05-07] MEDS: BLOOD SUGAR DIAGNOSTIC 1 EACH STRIP IN SCH ×4 (06:38→22:33)
[2023-05-07] MEDS: INSULIN REGULAR, HUMAN 100 UNIT/ML 3 ML VIAL SQ PRN ×2 (06:39→11:47)
[2023-05-07] MEDS: LEVOTHYROXINE SODIUM 50 MCG TABLET PO SCH (07:59)
[2023-05-07 08:00] VITALS: BP 125/60; TEMP 97.9; O2SAT 97
[2023-05-07] MEDS: PANTOPRAZOLE 40 MG TABLET.DR PO SCH ×2 (08:00→08:30)
[2023-05-07] MEDS: CHOLECALCIFEROL 1,000 UNIT TABLET (VIT D3) PO SCH (08:30)
[2023-05-07] MEDS: ARIPIPRAZOLE 5 MG TABLET PO SCH (08:31)
[2023-05-07] MEDS: GABAPENTIN 300 MG CAPSULE PO SCH ×2 (08:31→17:06)
[2023-05-07] MEDS: DUTASTERIDE (0.5 MG) 0.5 MG CAPSULE PO SCH (08:31)
[2023-05-07] MEDS ORDERED: Medication Not On Formulary EA (Lubiprostone (Amitiza) 24 MCG) PO SCH (09:00)
[2023-05-07] MEDS: FUROSEMIDE 40 MG/4 ML VIAL IV SCH ×2 (11:18→17:06)
[2023-05-07] MEDS: FERROUS SULFATE (325 MG) 325 MG/TAB TABLET PO SCH ×2 (13:12→13:14)
[2023-05-07] MEDS: APIXABAN 5 MG TABLET PO SCH ×2 (13:13→17:12)
[2023-05-07 16:00] VITALS: BP 122/67; TEMP 98.4; O2SAT 98
[2023-05-07 20:00] VITALS: BP 116/91; TEMP 98; O2SAT 98
[2023-05-08] VITALS: BP 125/58; TEMP 98.2; O2SAT 95
[2023-05-08] MEDS: CEFTRIAXONE 1 G in IV D5W 50 ML IV SCH (00:24)
[2023-05-08 04:00] VITALS: BP 136/58; TEMP 98.1; O2SAT 96
[2023-05-08 05:48] LABS: BASOPHILS # (AUTO) 0.1 K/uL (0.0-0.2); EOSINOPHILS # (AUTO) 0.6 K/uL (0.0-0.7); EOSINOPHILS % (AUTO) 7.1 % (0.0-6.0); HEMATOCRIT 40 % (39-51); HEMOGLOBIN 13.1 g/dL (13.5-17.5); LYMPHOCYTES # (AUTO) 3.7 K/uL (0.8-4.8); LYMPHOCYTES % (AUTO) 41.8 % (20.0-44.0); MEAN CORPUSCULAR HEMOGLOBIN 31 PG (26.0-33.0); MEAN CORPUSCULAR HGB CONC 33 g/dl (31.0-36.0); MEAN CORPUSCULAR VOLUME 94 fL (80-96); MONOCYTES # (AUTO) 1.2 K/uL (0.1-1.30); MONOCYTES % (AUTO) 13.2 % (2.0-12.0); NEUTROPHILS # (AUTO) 3.3 K/uL (1.8-8.9); NEUTROPHILS % (AUTO) 36.9 % (43.0-81.0); PLATELET COUNT (AUTO) 495 K/uL (150-450); RED BLOOD CELL COUNT(AUTO) 4.24 MIL/uL (4.5-6.0); RED CELL DISTRIBUTION WIDTH 14.1 % (11.5-15.0); WHITE BLOOD COUNT (AUTO) 8.8 K/uL (4.3-11.0)
[2023-05-08 06:09] LABS: ALBUMIN 3.1 g/dL (3.4-5.0); BILIRUBIN,TOTAL 0.3 mg/dL (0.2-1.0); CREATININE 0.7 mg/dL (0.6-1.3); MAGNESIUM 2.3 mg/dL (1.8-2.4); PHOSPHORUS 4.1 mg/dL (2.5-4.9); POTASSIUM 3.5 mmol/L (3.5-5.1); TOTAL PROTEIN, SERUM 7.6 g/dL (6.4-8.2)
[2023-05-08 07:00] VITALS: BP 122/59; TEMP 98.1; O2SAT 95
[2023-05-08] MEDS: BLOOD SUGAR DIAGNOSTIC 1 EACH STRIP IN SCH ×4 (07:06→22:00)
[2023-05-08] MEDS: LEVOTHYROXINE SODIUM 50 MCG TABLET PO SCH (08:22)
[2023-05-08] MEDS: PANTOPRAZOLE 40 MG TABLET.DR PO SCH (08:22)
[2023-05-08] MEDS: FUROSEMIDE 40 MG/4 ML VIAL IV SCH ×2 (08:23→16:54)
[2023-05-08] MEDS: DUTASTERIDE (0.5 MG) 0.5 MG CAPSULE PO SCH (08:23)
[2023-05-08] MEDS: GABAPENTIN 300 MG CAPSULE PO SCH ×2 (08:23→16:54)
[2023-05-08] MEDS: CHOLECALCIFEROL 1,000 UNIT TABLET (VIT D3) PO SCH (08:23)
[2023-05-08] MEDS: ARIPIPRAZOLE 5 MG TABLET PO SCH (08:23)
[2023-05-08] MEDS: APIXABAN 5 MG TABLET PO SCH ×2 (08:24→16:58)
[2023-05-08 11:30] VITALS: BP 122/70; TEMP 97.9; O2SAT 93
[2023-05-08] MEDS: PROSOURCE / PROSTAT (PYXIS) 30 ML UDC PO SCH ×2 (12:32→16:54)
[2023-05-08 16:00] VITALS: BP 129/63; TEMP 98.3; O2SAT 91
[2023-05-08 20:00] VITALS: BP 123/66; TEMP 98.8; O2SAT 94
[2023-05-09] VITALS: BP 126/68; TEMP 98.8; O2SAT 96
[2023-05-09] MEDS: CEFTRIAXONE 1 G in IV D5W 50 ML IV SCH (00:53)
[2023-05-09 00:59] VITALS: BP 126/68; TEMP 98.8; O2SAT 96
[2023-05-09 04:00] VITALS: BP 127/53; TEMP 98.6; O2SAT 95
[2023-05-09 04:38] VITALS: BP 127/53; TEMP 98.6; O2SAT 95
[2023-05-09 05:54] LABS: BASOPHILS # (AUTO) 0.1 K/uL (0.0-0.2); BASOPHILS % (AUTO) 1.1 % (0.0-2.0); EOSINOPHILS # (AUTO) 0.7 K/uL (0.0-0.7); EOSINOPHILS % (AUTO) 7.8 % (0.0-6.0); HEMATOCRIT 38 % (39-51); HEMOGLOBIN 12.6 g/dL (13.5-17.5); LYMPHOCYTES # (AUTO) 3.7 K/uL (0.8-4.8); LYMPHOCYTES % (AUTO) 39.4 % (20.0-44.0); MEAN CORPUSCULAR HEMOGLOBIN 31 PG (26.0-33.0); MEAN CORPUSCULAR HGB CONC 33 g/dl (31.0-36.0); MEAN CORPUSCULAR VOLUME 94 fL (80-96); MONOCYTES # (AUTO) 1.4 K/uL (0.1-1.30); MONOCYTES % (AUTO) 14.7 % (2.0-12.0); NEUTROPHILS # (AUTO) 3.5 K/uL (1.8-8.9); PLATELET COUNT (AUTO) 508 K/uL (150-450); RED BLOOD CELL COUNT(AUTO) 4.01 MIL/uL (4.5-6.0); RED CELL DISTRIBUTION WIDTH 14.3 % (11.5-15.0); WHITE BLOOD COUNT (AUTO) 9.5 K/uL (4.3-11.0)
[2023-05-09 06:35] LABS: ALANINE AMINOTRANSFERASE 18 U/L (12-78); ALBUMIN 2.9 g/dL (3.4-5.0); ALKALINE PHOSPHATASE 129 U/L (46-116); ASPARTATE AMINOTRANSFERASE 14 U/L (15-37); BILIRUBIN,TOTAL 0.3 mg/dL (0.2-1.0); CALCIUM, SERUM 8.6 mg/dL (8.5-10.1); CARBON DIOXIDE 30 mmol/L (21-32); CHLORIDE 98 mmol/L (98-107); CREATININE 0.7 mg/dL (0.6-1.3); GLUCOSE 99 mg/dL (74-106); MAGNESIUM 2.2 mg/dL (1.8-2.4); PHOSPHORUS 3.9 mg/dL (2.5-4.9); POTASSIUM 3.3 mmol/L (3.5-5.1); SODIUM SERUM 135 mmol/L (136-145); TOTAL PROTEIN, SERUM 7.3 g/dL (6.4-8.2); UREA NITROGEN, BLOOD 34 mg/dL (7-18)
[2023-05-09] MEDS: BLOOD SUGAR DIAGNOSTIC 1 EACH STRIP IN SCH ×2 (07:02→12:25)
[2023-05-09 08:46] VITALS: BP 116/60; TEMP 98.2; O2SAT 98
[2023-05-09] MEDS: FUROSEMIDE 40 MG/4 ML VIAL IV SCH (08:50)
[2023-05-09] MEDS: ARIPIPRAZOLE 5 MG TABLET PO SCH (08:50)
[2023-05-09] MEDS: DUTASTERIDE (0.5 MG) 0.5 MG CAPSULE PO SCH (08:50)
[2023-05-09] MEDS: PANTOPRAZOLE 40 MG TABLET.DR PO SCH (08:50)
[2023-05-09] MEDS: LEVOTHYROXINE SODIUM 50 MCG TABLET PO SCH (08:50)
[2023-05-09] MEDS: APIXABAN 5 MG TABLET PO SCH (08:51)
[2023-05-09] MEDS: CHOLECALCIFEROL 1,000 UNIT TABLET (VIT D3) PO SCH (08:52)
[2023-05-09] MEDS: GABAPENTIN 300 MG CAPSULE PO SCH (08:52)
[2023-05-09] MEDS: PROSOURCE / PROSTAT (PYXIS) 30 ML UDC PO SCH ×2 (08:52→12:28)
[2023-05-09] MEDS ORDERED: POTASSIUM CHLORIDE 20 MEQ TAB.PRT.SR PO SCH (10:30)
[2023-05-09] MEDS: INSULIN REGULAR, HUMAN 100 UNIT/ML 3 ML VIAL SQ PRN (12:25)
[2023-05-09] MEDS: FERROUS SULFATE (325 MG) 325 MG/TAB TABLET PO SCH (12:28)
[2023-05-09 15:46] VITALS: BP 118/48; TEMP 97.8; O2SAT 99
== END 2023-05-09 16:25 | DRG 291 ==
LOC: ER 18:22 → TELE 21:38
PROVIDERS: ADMIT Nurse Practitioner Acute Care
DX: I11.0 Hypertensive heart disease with heart failure (principal); I50.33 Acute on chronic diastolic (congestive) heart failure; E87.1 Hypo-osmolality and hyponatremia; I82.412 Acute embolism and thrombosis of left femoral vein; L97.419 Non-pressure chronic ulcer of right heel and midfoot with unspecified severity; Z68.42 Body mass index [BMI] 45.0-49.9, adult; E11.42 Type 2 diabetes mellitus with diabetic polyneuropathy; I89.0 Lymphedema, not elsewhere classified; J44.9 Chronic obstructive pulmonary disease, unspecified; Z20.822 Contact with and (suspected) exposure to COVID-19; R56.9 Unspecified convulsions; N40.0 Benign prostatic hyperplasia without lower urinary tract symptoms; K21.9 Gastro-esophageal reflux disease without esophagitis; M81.0 Age-related osteoporosis without current pathological fracture; M19.90 Unspecified osteoarthritis, unspecified site; F20.9 Schizophrenia, unspecified; F32.A Depression, unspecified; E03.9 Hypothyroidism, unspecified; D64.9 Anemia, unspecified; Z79.4 Long term (current) use of insulin; Z79.51 Long term (current) use of inhaled steroids; Z79.890 Hormone replacement therapy; L89.616 Pressure-induced deep tissue damage of right heel; E11.621 Type 2 diabetes mellitus with foot ulcer; E66.01 Morbid (severe) obesity due to excess calories; G47.33 Obstructive sleep apnea (adult) (pediatric); R53.1 Weakness; E11.51 Type 2 diabetes mellitus with diabetic peripheral angiopathy without gangrene
CPT/HCPCS: 36415; 71045-TC; 80048-TC; 80053-TC; 80076-TC; 81001; 82962-TC; 83605-TC; 83735-TC; 83880; 84100-TC; 84443-TC; 84484-TC; 85025-TC; 85730-TC; 87040-TC; 87081-TC; 87086-TC; 93307-TC; 93970-TC; 97110-TC; 97530-TC; A4223; C9803; G0378; J0696; J1815; J1940; J7040; J7060

== ENCOUNTER 2024-02-04 16:35 | Inpatient (IN) | payer MEDICARE, OTHER ==
[~2024-02-04] VITALS: Ht 182.9 cm; Wt 131.1 kg
[~2024-02-04 16:35] MED LIST changes: -ACET-2605 PO; +ACET-868 PO; -ALEN70TA80 PO; -AMIN30LI2 PO; -ASCO500T10 PO; -CHOL100040 PO; +CHOL200059 PO; -FAMO20TA8 PO; +GABA300C PO; +GLUC1KIT SQ; +HYDR-4075 PO; +HYDR-4209 PO; +HYDR-4303 PO; +INSU100V3 SQ; +IPRA4AER IH; +LIQUID PROTEIN PO; -MULT-754 PO; +PANT40TA2 PO; -POLY17PO4 PO; -TAMS-12 PO
[2024-02-04 17:40] LABS: BASOPHILS # (AUTO) 0.1 K/uL (0.0-0.2); BASOPHILS % (AUTO) 1.1 % (0.0-2.0); EOSINOPHILS # (AUTO) 0.4 K/uL (0.0-0.7); EOSINOPHILS % (AUTO) 4.4 % (0.0-6.0); HEMATOCRIT 43 % (39-51); HEMOGLOBIN 14.3 g/dL (13.5-17.5); LYMPHOCYTES # (AUTO) 3.8 K/uL (0.8-4.8); MEAN CORPUSCULAR HEMOGLOBIN 31 PG (26.0-33.0); MEAN CORPUSCULAR HGB CONC 33 g/dl (31.0-36.0); MEAN CORPUSCULAR VOLUME 94 fL (80-96); MONOCYTES # (AUTO) 1.1 K/uL (0.1-1.30); MONOCYTES % (AUTO) 10.9 % (2.0-12.0); NEUTROPHILS # (AUTO) 4.4 K/uL (1.8-8.9); NEUTROPHILS % (AUTO) 44.6 % (43.0-81.0); PLATELET COUNT (AUTO) 609 K/uL (150-450); RED BLOOD CELL COUNT(AUTO) 4.61 MIL/uL (4.5-6.0); WHITE BLOOD COUNT (AUTO) 9.8 K/uL (4.3-11.0)
[2024-02-04 17:49] LABS: CARBON DIOXIDE 32 mmol/L (21-32); CHLORIDE 101 mmol/L (98-107); CREATININE 0.7 mg/dL (0.6-1.3); GLUCOSE 98 mg/dL (74-106); POTASSIUM 4.1 mmol/L (3.5-5.1); SODIUM SERUM 135 mmol/L (136-145); UREA NITROGEN, BLOOD 23 mg/dL (7-18)
[2024-02-04 17:56] LABS: PROTHROMBIN TIME 9.8 SECS (9.2-11.1)
[2024-02-04 17:57] LABS: INR 0.95 (0.91-1.10)
[2024-02-04 18:01] LABS: NT-PRO BNP 238 pg/mL (0-125)
[2024-02-04 18:23] LABS: EOSINOPHILS % (MANUAL) 7 % (0-4); LYMPHOCYTES % (MANUAL) 37 % (16-48); MONOCYTES % (MANUAL) 13 % (0-11.0); NEUTROPHILS % (MANUAL) 43 (42-76); PLATELET ESTIMATE INCREASED
[2024-02-04 18:26] LABS: TARGET CELLS 1+
[2024-02-04] MEDS ORDERED: BLOO-668 IN (18:35)
[2024-02-04] MEDS ORDERED: ACETAMINOPHEN 325 MG TABLET PO PRN (20:00)
[2024-02-04] MEDS ORDERED: ONDANSETRON HCL/PF 4 MG/2 ML VIAL IVP PRN (20:00)
[2024-02-04] MEDS ORDERED: MAGNESIUM HYDROXIDE 30 ML UDC PO PRN (20:00)
[2024-02-04] MEDS ORDERED: MAG HYDROX/AL HYDROX/SIMETH 30 ML UDC PO PRN (20:00)
[2024-02-04] MEDS ORDERED: Z GUARD REMEDY 4 OZ OINT TP PRN (20:00)
[2024-02-04 21:00] VITALS: BP_SYST 120; BP_DIAS 61; BP_DIAS 66; TEMP 98.4; O2SAT 96
[2024-02-04] MEDS ORDERED: ZOLPIDEM TARTRATE 5 MG TABLET PO PRN (22:00)
[2024-02-04] MEDS: ENOXAPARIN SODIUM 40 MG/0.4 ML DISP.SYRIN SQ SCH (22:19)
[2024-02-05] MEDS ORDERED: DEXTROSE 50%-WATER 50 ML DISP.SYRIN IV PRN
[2024-02-05] MEDS: BLOOD SUGAR DIAGNOSTIC 1 EACH STRIP IN SCH (06:37)
[2024-02-05 06:39] LABS: BASOPHILS # (AUTO) 0.1 K/uL (0.0-0.2); BASOPHILS % (AUTO) 0.9 % (0.0-2.0); EOSINOPHILS # (AUTO) 0.3 K/uL (0.0-0.7); EOSINOPHILS % (AUTO) 3.9 % (0.0-6.0); HEMATOCRIT 40 % (39-51); HEMOGLOBIN 13.5 g/dL (13.5-17.5); LYMPHOCYTES # (AUTO) 3.5 K/uL (0.8-4.8); LYMPHOCYTES % (AUTO) 40.3 % (20.0-44.0); MEAN CORPUSCULAR HEMOGLOBIN 31 PG (26.0-33.0); MEAN CORPUSCULAR HGB CONC 34 g/dl (31.0-36.0); MEAN CORPUSCULAR VOLUME 93 fL (80-96); MONOCYTES # (AUTO) 0.9 K/uL (0.1-1.30); MONOCYTES % (AUTO) 10.1 % (2.0-12.0); NEUTROPHILS # (AUTO) 3.9 K/uL (1.8-8.9); NEUTROPHILS % (AUTO) 44.8 % (43.0-81.0); PLATELET COUNT (AUTO) 532 K/uL (150-450); RED BLOOD CELL COUNT(AUTO) 4.35 MIL/uL (4.5-6.0); RED CELL DISTRIBUTION WIDTH 14.3 % (11.5-15.0); WHITE BLOOD COUNT (AUTO) 8.8 K/uL (4.3-11.0)
[2024-02-05] MEDS: INSULIN REGULAR, HUMAN 100 UNIT/ML 3 ML VIAL SQ PRN (06:39)
[2024-02-05] MEDS: PANTOPRAZOLE 40 MG TABLET.DR PO SCH (06:52)
[2024-02-05 07:00] LABS: ALANINE AMINOTRANSFERASE 14 U/L (12-78); ALBUMIN 2.6 g/dL (3.4-5.0); ALKALINE PHOSPHATASE 140 U/L (46-116); ASPARTATE AMINOTRANSFERASE 17 U/L (15-37); BILIRUBIN,DIRECT 0.1 mg/dL (0.0-0.2); BILIRUBIN,TOTAL 0.3 mg/dL (0.2-1.0); CALCIUM, SERUM 9.4 mg/dL (8.5-10.1); CARBON DIOXIDE 28 mmol/L (21-32); CHLORIDE 102 mmol/L (98-107); CREATININE 0.5 mg/dL (0.6-1.3); GLUCOSE 95 mg/dL (74-106); MAGNESIUM 2.4 mg/dL (1.8-2.4); PHOSPHORUS 2.9 mg/dL (2.5-4.9); POTASSIUM 3.9 mmol/L (3.5-5.1); SODIUM SERUM 135 mmol/L (136-145); TOTAL PROTEIN, SERUM 7.2 g/dL (6.4-8.2); UREA NITROGEN, BLOOD 23 mg/dL (7-18)
[2024-02-05 08:00] VITALS: BP 127/68; TEMP 98.4; O2SAT 97
[2024-02-05] MEDS ORDERED: SENNOSIDES 8.6 MG TABLET PO PRN (10:00)
[2024-02-05] MEDS ORDERED: hydrALAZINE HCL 10 MG TABLET PO PRN (10:00)
[2024-02-05 11:08] LABS: CHOLESTEROL 215 mg/dL (<200); HDL CHOLESTEROL 43 mg/dL (40-60); LDL 149 mg/dL (0-99); TRIGLYCERIDES 118 mg/dL (30-150)
[2024-02-05] MEDS ORDERED: IPRATROPIUM NEB FS 0.5 MG/2.5 ML AMPUL.NEB NEB PRN (12:00)
[2024-02-05] MEDS ORDERED: ALBUTEROL FS 2.5 MG/0.5 ML VIAL.NEB NEB PRN (12:00)
[2024-02-05] MEDS: FERROUS SULFATE (325 MG) 325 MG/TAB TABLET PO SCH (12:05)
[2024-02-05] MEDS: FUROSEMIDE 20 MG TABLET PO SCH (12:06)
[2024-02-05] MEDS: HYDROCODONE/APAP 5/325MG TABLET PO PRN (13:27)
[2024-02-05 16:00] VITALS: BP 114/63; TEMP 98.2; O2SAT 97
[2024-02-05] MEDS ORDERED: Medication Not On Formulary EA (Lubiprostone (Amitiza) 24 MCG) PO SCH (17:00)
[2024-02-05] MEDS: GABAPENTIN 300 MG CAPSULE PO SCH (17:05)
[2024-02-05 20:00] VITALS: BP 128/71; TEMP 97.9; O2SAT 94
[2024-02-06 07:10] LABS: CALCIUM, SERUM 8.9 mg/dL (8.5-10.1); CARBON DIOXIDE 28 mmol/L (21-32); CHLORIDE 101 mmol/L (98-107); CREATININE 0.6 mg/dL (0.6-1.3); GLUCOSE 89 mg/dL (74-106); POTASSIUM 4.2 mmol/L (3.5-5.1); SODIUM SERUM 134 mmol/L (136-145); UREA NITROGEN, BLOOD 29 mg/dL (7-18)
[2024-02-06] MEDS ORDERED: PANTOPRAZOLE 40 MG TABLET.DR PO SCH (07:30)
[2024-02-06] MEDS: LEVOTHYROXINE SODIUM 50 MCG TABLET PO SCH (07:47)
[2024-02-06 08:00] VITALS: BP 122/71; TEMP 97.7; O2SAT 97
[2024-02-06] MEDS: DUTASTERIDE (0.5 MG) 0.5 MG CAPSULE PO SCH (08:39)
[2024-02-06] MEDS: CHOLECALCIFEROL 1,000 UNIT TABLET (VIT D3) PO SCH (08:39)
[2024-02-06] MEDS ORDERED: ALBUTEROL FS 2.5 MG/3 ML VIAL.NEB NEB PRN (12:30)
[2024-02-06 16:00] VITALS: BP 125/60; TEMP 98.4; O2SAT 94
[2024-02-06] MEDS: GUAIFENESIN LA 600 MG TABLET.SA PO SCH (20:11)
[2024-02-06 20:15] VITALS: BP 111/66; TEMP 98.2; O2SAT 94
[2024-02-06 20:37] LABS: APPEARANCE,URINE TURBID (CLEAR); COLOR,URINE YELLOW (YELLOW); PH,URINE 7.5 (5.0-8.0); PROTEIN,URINE NEGATIVE (NEGATIVE); UGLUCOSE NEGATIVE (NEGATIVE)
[2024-02-06 20:38] LABS: BILIRUBIN,URINE NEGATIVE (NEGATIVE); BLOOD, URINE NEGATIVE Ery/uL (NEGATIVE); KETONES,URINE NEGATIVE (NEGATIVE); LEUKOCYTE ESTERASE ,URINE 2+ (NEGATIVE); UROBILINOGEN,URINE 0.2 EU/dL (0.2)
[2024-02-06 20:40] LABS: ADD URINE CULTURE YES; BACTERIA,URINE 2+ /HPF (None Seen); CALCIUM PHOSPHATE CRYSTALS,UR Many /HPF (None Seen); RBC,URINE 0-2 /HPF (0-2); SQUAMOUS EPITHELIAL CELL,UR None Seen /HPF (None Seen); WBC,URINE 21-50 /HPF (0-3)
[2024-02-06 20:46] LABS: NITRITE, URINE POSITIVE (NEGATIVE)
[2024-02-07 08:00] VITALS: BP 145/74; TEMP 98.3; O2SAT 95
[2024-02-07] MEDS ORDERED: LEVO50TA PO (13:50)
[2024-02-07] MEDS ORDERED: GUAI600T53 PO (13:50)
[2024-02-07 16:00] VITALS: BP 113/63; TEMP 98.3; O2SAT 95
[2024-02-09] MEDS ORDERED: MUPI15CR NS (15:02)
[2024-02-09] MEDS ORDERED: MUPI22OI7 NS (15:02)
== END 2024-02-07 19:13 | DRG 641 ==
LOC: ER 16:48 → MED 20:30
PROVIDERS: ADMIT Nurse Practitioner Family; ATTEND Nurse Practitioner Acute Care
DX: E86.0 Dehydration (principal); E44.0 Moderate protein-calorie malnutrition; D84.9 Immunodeficiency, unspecified; E87.1 Hypo-osmolality and hyponatremia; K21.00 Gastro-esophageal reflux disease with esophagitis, without bleeding; E03.9 Hypothyroidism, unspecified; R56.9 Unspecified convulsions; I10 Essential (primary) hypertension; N40.0 Benign prostatic hyperplasia without lower urinary tract symptoms; M81.0 Age-related osteoporosis without current pathological fracture; M19.90 Unspecified osteoarthritis, unspecified site; F32.A Depression, unspecified; D63.8 Anemia in other chronic diseases classified elsewhere; Z79.51 Long term (current) use of inhaled steroids; Z79.890 Hormone replacement therapy; Z79.899 Other long term (current) drug therapy; E88.09 Other disorders of plasma-protein metabolism, not elsewhere classified; Z68.39 Body mass index [BMI] 39.0-39.9, adult; E66.01 Morbid (severe) obesity due to excess calories; E11.40 Type 2 diabetes mellitus with diabetic neuropathy, unspecified; R79.89 Other specified abnormal findings of blood chemistry; J42 Unspecified chronic bronchitis; F20.9 Schizophrenia, unspecified; G47.30 Sleep apnea, unspecified; Z74.01 Bed confinement status; Z22.322 Carrier or suspected carrier of Methicillin resistant Staphylococcus aureus
CPT/HCPCS: 36415; 71045-TC; 80048-TC; 80061-TC; 80076-TC; 81001; 82962-TC; 83735-TC; 83880; 84100-TC; 85025-TC; 85730-TC; 87040-TC; 87081-TC; 97110-TC; 97530-TC; G0378; J1650; J1815